=== PATIENT | female | born 1980 | race Caucasian/White ===

== ENCOUNTER 2016-05-03 14:58 | Emergency (ER) | payer OTHER ==
[2016-05-03 17:17] VITALS: BP 132/77
[2016-05-03] MEDS ORDERED: Azithromycin TAB* 250 MG PO ONE (17:51)
--- NOTE | 2016-05-03 17:53 | UC ---
Respiratory Complaint HPI - History of Current Complaint Chief Complaint: UCRespiratory Stated Complaint: SINUS PRESSURE,HEADACHE Time Seen by Provider: 05/03/16 17:42 Hx Obtained From: Patient Hx Last Menstrual Period: ABLASION 1 YEAR AGO AND TUBAL Onset/Duration: Gradual Onset - over past 4-5 days.sinus pain and pressure worsened over past day Timing: Constant Severity Initially: Mild Severity Currently: Moderate Aggravating Factors: Recumbent Position Alleviating Factors: Nothing - tried mucinex Associated Signs And Symptoms: Positive: Fever, Nasal Congestion, Sinus Discomfort - feeling fatigued - Risk Factors Cardiac Risk Factors: Negative - Allergies/Home Medications Allergies/Adverse Reactions: Allergies Allergy/AdvReac Type Severity Reaction Status Date / Time Penicillins Allergy Intermediate Hives Verified 09/14/14 06:57 Sulfa Antibiotics Allergy Intermediate itching Verified 09/14/14 06:57 all over Acetaminophen [From Tylenol] AdvReac GI Upset Verified 09/14/14 06:57 Home Medications: Home Medications Buprenorphine HCl-Naloxone HCl [Suboxone 4-1 mg] 05/03/16 [History] [id number] [Mucinex Fast-Max Day/Nigh] 05/03/16 [History] PMH/Surg Hx/FS Hx/Imm Hx Previously Healthy: Yes Endocrine History Of: Denies: Diabetes, Thyroid Disease Cardiovascular History Of: Denies: Cardiac Disorders, Hypertension, Pacemaker/ICD, Congestive Heart Failure Respiratory History Of: Reports: Bronchitis Denies: COPD, Asthma GI/ History Of: Denies: Ulcer, Renal Disease - Surgical History Surgical History: Yes Surgery Procedure, Year, and Place: carpal tunnel surgery. tubal ligation. c- sections x2 2005, 2007 - Family History Known Family History: Positive: None - Social History Occupation: Employed Full-time Lives: With Family Alcohol Use: None Substance Use Type: None - has used opiates. is currently on suboxone Smoking Status (MU): Current Every Day Smoker Type: Cigarettes Amount Used/How Often: 1/2 PPD 20+ YEARS Have You Smoked in the Last Year: Yes Cessation Counseling: Patient Advised to Stop - Immunization History Most Recent Influenza Vaccination: YES THIS SEASON Review of Systems Constitutional: Fever, Fatigue Eyes: Negative ENT: Nasal Discharge - yellow, Other - sinus pain and pressure, worse if bends forward Respiratory: Cough - occass. cough Cardiovascular: Negative Gastrointestinal: Negative Musculoskeletal: Negative Psychological: Negative All Other Systems Reviewed And Are Negative: Yes Physical Exam Triage Information Reviewed: Yes Appearance: Well-Appearing, No Pain Distress, Well-Nourished Vital Signs: Initial Vital Signs Temp 98.3 F 05/03/16 17:12 Pulse 61 05/03/16 17:12 Resp 16 05/03/16 17:12 BP 132/77 05/03/16 17:12 Pulse Ox 100 05/03/16 17:12 Vital Signs Reviewed: Yes Eye Exam: Normal Eyes: Positive: Conjunctiva Clear ENT: Positive: Pharyngeal erythema, Nasal congestion, Nasal drainage, TMs normal , Other: - bilat maxillary pain ith percussion Neck exam: Normal Neck: Positive: No Lymphadenopathy Respiratory Exam: Normal Respiratory: Positive: Lungs clear Cardiovascular Exam: Normal Neurological Exam: Normal Psychological Exam: Normal Skin Exam: Normal Skin: Negative: rashes UC Diagnostic Evaluation - Laboratory O2 Sat by Pulse Oximetry: 100 Respiratory Course/Dx - Differential Dx/Diagnosis Differential Diagnosis/HQI/PQRI: Bronchitis, Influenza, Sinusitis, Other - URI Provider Diagnoses: sinusitis Discharge - Discharge Plan Condition: Stable Disposition: HOME Prescriptions: Azithromycin TAB* [Zithromax TAB (Z-VALERIANO) 250 mg #6 tabs] 250 mg PO DAILY #4 tab Patient Education Materials: Sinusitis (ED) Referrals: Emiliano Short MD [Primary Care Provider] - 3 Days (If no better) Additional Instructions: Rest and increase fluids take zithromax as prescribed try sudafed for nasal decongestion Return here if your symptoms worsen
== END 2016-05-03 18:03 | disposition home or self-care (01) ==
LOC: UCEAST 14:58
DX: J01.90 Acute sinusitis, unspecified (principal); Z88.0 Allergy status to penicillin; Z88.6 Allergy status to analgesic agent
CPT/HCPCS: 99212; A9270-GY; G0463

== ENCOUNTER 2017-11-07 20:06 | Emergency (ER) | payer OTHER ==
[2017-11-07 20:29] VITALS: BP 154/89
[2017-11-07] MEDS ORDERED: Ciprofloxacin TAB* 500 MG PO ONE (21:11)
--- NOTE | 2017-11-07 21:12 | UC ---
Back Pain HPI - HPI Summary HPI Summary: started having low back pain 2 nights ago, also pink vaginal discharge (thinks its vaginal) Today back pain seemed higher, denies dysuria - History of Current Complaint Chief Complaint: UCBackPain Stated Complaint: BACK PAIN,BLEEDING Time Seen by Provider: 11/07/17 20:58 Hx Obtained From: Patient Hx Last Menstrual Period: ablation and tubal ?: No Onset/Duration: Gradual Onset Timing: Intermittent Severity Initially: Mild Severity Currently: Mild Pain Intensity: 3 Back Pain: Is Discrete @ - lower back Character: Throbbing, Stiffness Aggravating Factor(s): Movement, Bending Alleviating Factor(s): Rest Associated Signs And Symptoms: Positive: Negative - Risk Factors Cauda Equina Risk Factors: Negative - Allergies/Home Medications Allergies/Adverse Reactions: Allergies Allergy/AdvReac Type Severity Reaction Status Date / Time acetaminophen [From Tylenol] Allergy GI Upset Verified 11/07/17 20:30 Penicillins Allergy Hives Verified 11/07/17 20:30 Sulfa (Sulfonamide Allergy Itching Verified 11/07/17 20:30 Antibiotics) PMH/Surg Hx/FS Hx/Imm Hx Previously Healthy: Yes Psychological History: Anxiety - Surgical History Surgical History: Yes Surgery Procedure, Year, and Place: carpal tunnel surgery. tubal ligation. c- sections x2 2005, 2007. UTERINE ABLASION - Family History Known Family History: Positive: None Negative: Cardiac Disease, Hypertension - Social History Occupation: Employed Full-time Lives: With Family Alcohol Use: None Substance Use Type: None Smoking Status (MU): Former Smoker Type: Cigarettes Amount Used/How Often: 1/2 PPD 20+ YEARS Have You Smoked in the Last Year: Yes - Immunization History Most Recent Influenza Vaccination: YES THIS SEASON Review of Systems Constitutional: Negative Respiratory: Negative Cardiovascular: Negative Neurological: Negative Psychological: Negative All Other Systems Reviewed And Are Negative: Yes Physical Exam Triage Information Reviewed: Yes Appearance: Well-Appearing, No Pain Distress, Well-Nourished Vital Signs: Initial Vital Signs Temp 97.9 F 11/07/17 20:22 Pulse 62 11/07/17 20:22 Resp 16 11/07/17 20:22 BP 154/89 11/07/17 20:22 Pulse Ox 100 11/07/17 20:22 Vital Signs Reviewed: Yes Respiratory Exam: Normal Respiratory: Positive: Lungs clear Cardiovascular Exam: Normal Abdomen Description: Positive: Nontender, No Organomegaly, Soft Pelvic Exam: Positive: Other - deferred to REPAIR ORDER CLERK -pt is scheduling appoint Neurological Exam: Normal Psychological Exam: Normal Back Pain Course/Dx - Differential Dx/Diagnosis Differential Diagnosis/HQI/PQRI: Strain, Other - UTI, peg, low back strain Provider Diagnoses: low back strain. hematuria Discharge - Sign-Out/Discharge Documenting (check all that apply): Patient Departure - Discharge Plan Condition: Good Disposition: HOME Prescriptions: Ciprofloxacin TAB* [Cipro 250 MG Tab*] 250 mg PO BID #6 tab Patient Education Materials: Low Back Strain (ED), Hematuria (ED) Referrals: Emiliano Short MD [Primary Care Provider] - Additional Instructions: start Cipro as prescribed (do not take hydroxyzine with cipro) drink plenty of fluids See REPAIR ORDER CLERK as soon as possible - Billing Disposition and Condition Condition: GOOD Disposition: Home
== END 2017-11-07 21:25 | disposition home or self-care (01) ==
LOC: UCEAST 20:06
DX: S39.012A Strain of muscle, fascia and tendon of lower back, initial encounter (principal); X58.XXXA Exposure to other specified factors, initial encounter; Y92.9 Unspecified place or not applicable
CPT/HCPCS: 81003; 84702; 87086; 99212; A9270-GY; G0463

== ENCOUNTER 2018-01-01 10:52 | Day surgery (SDC) | payer OTHER ==
[~2018-01-01 10:52] MED LIST: Buffered Lidocaine 0.9% SYRIN* 5 ML/SYR SYRINGE INTRADERM ONE
[2018-01-01] MEDS ORDERED: Lidocaine 1% INJ* 10 MG/ML 30 ML SDV ONE (12:02)
[2018-01-01] MEDS ORDERED: Midazolam* 1 MG/ML 2 ML VIAL (2 MG) ONE (12:23)
[2018-01-01] MEDS ORDERED: Naloxone* 0.4 MG/ML 1 ML VIAL IV PRN (12:46)
[2018-01-01 13:14] VITALS: BP 112/60
--- NOTE | 2018-01-02 02:59 | OP ---
DATE OF OPERATION: 01/01/18 [facility] DATE OF : 80 SURGEON: Maria Luisa Muhammad MD PHARMACEUTICAL ANALYST: MONIQUE Nichols ANESTHESIA: Local MAC. PRE-OP DIAGNOSES: Left carpal tunnel syndrome and left wrist ulnar nerve compression. POST-OP DIAGNOSES: Left carpal tunnel syndrome and left wrist ulnar nerve compression. OPERATIVE PROCEDURE: Ulnar and median nerve decompression at the left wrist. INDICATIONS FOR PROCEDURE: Kaleigh is a 37-year-old female who has numbness and tingling in all of the fingers of her left hand and exam consistent with an ulnar nerve compression at the wrist and a median nerve compression at the wrist. She presents for ulnar and median nerve decompression at the left wrist. ESTIMATED BLOOD LOSS: Zero. TOURNIQUET TIME: About 20 minutes. DESCRIPTION OF PROCEDURE: The patient was brought to the operating room, was given a sedation anesthetic and a local infiltration of 10 cc of 1% plain lidocaine in the palm of her left hand and on the ulnar aspect of the distal wrist. The skin of her left upper extremity was prepped and draped in the usual sterile fashion and then the hand and forearm were exsanguinated and the tourniquet elevated to 250 mmHg. A longitudinal incision was made in the center of the palm in line with the ring finger. We dissected through the subcutaneous tissue down to the transverse carpal ligament. The ligament was divided sharply with a knife and then more proximally with the scissors. The nerve was dissected free from the surrounding tissue and there was an area of moderate compression at the mid portion of the ligament. The wound was then extended proximally across the wrist in zig-zag fashion and we dissected bluntly down to the ulnar nerve and artery. There were abundant fascial bands just proximal to the distal wrist crease, which were compressing the nerve and these were all completely released. The nerve was then released through Guyon' s canal all the way into the center of the palm. The wound was irrigated and the skin edges were reapproximated with 4-0 nylon suture. The wound was dressed with Xeroform, 4x4, Webril, and an Robbie wrap. The patient tolerated the procedure well and was brought to the recovery room in good condition. [id number]/[facility] #: [id number] [facility]
== END 2018-01-01 13:46 | disposition home or self-care (01) ==
LOC: OREAST 10:52
PROVIDERS: ATTEND Orthopaedic Surgery
DX: G56.02 Carpal tunnel syndrome, left upper limb (principal); G56.22 Lesion of ulnar nerve, left upper limb; J45.909 Unspecified asthma, uncomplicated; Z87.891 Personal history of nicotine dependence; Z68.36 Body mass index [BMI] 36.0-36.9, adult
CPT/HCPCS: J2250

== ENCOUNTER 2018-06-15 10:14 | Day surgery (SDC) | payer OTHER ==
--- NOTE | 2018-06-04 07:02 | HP ---
HISTORY AND PHYSICAL: DATE OF ADMISSION/SURGERY: 06/15/18 DATE OF OFFICE VISIT: 06/03/18 SURGEON: Maria Luisa Muhammad MD * (DICTATED BY MONIQUE HERNANDEZ) PROCEDURE: Left trigger thumb release. CHIEF COMPLAINT: Left thumb pain. HISTORY OF PRESENT ILLNESS: Ms. Gore is a 37-year-old female with complaints of left thumb triggering. She has elected to proceed with surgery. PAST MEDICAL HISTORY: Denies. PAST SURGICAL HISTORY: Bilateral carpal tunnel release, left ulnar nerve decompression, and 2 C-sections. CURRENT MEDICATIONS: Suboxone 8 mg 2-2 a day. ALLERGIES: PENICILLIN and SULFA. FAMILY HISTORY: Denies. SOCIAL HISTORY: She is a 37-year-old female. She lives with her and children. She does not smoke, use drugs or alcohol. REVIEW OF SYSTEMS: A complete 14-point review of systems was reviewed with the patient. It was all negative or noncontributory. She denies history of DVT, PE , hepatitis, HIV, or anesthesia problems. PHYSICAL EXAMINATION GENERAL: She is well developed, well nourished, in no acute distress. She is alert and oriented x3. Pleasant mood and appropriate affect. VITAL SIGNS: The patient is 65 inches tall, weighs 220 pounds. HEENT: Normocephalic, atraumatic. NECK: Supple. No palpable lymph nodes. PULMONARY: The lungs are clear to auscultation bilaterally. CARDIO: Regular rate and rhythm. Strong S1, S2. ABDOMEN: Soft, nontender, nondistended. NEUROLOGICAL: She is alert and oriented x3. MUSCULOSKELETAL: Left upper extremity: The skin is intact. There are no open wounds or abrasions. She has intact sensation. There is triggering of the left thumb and some tenderness to palpation over the A1 luba. Full range of motion of the left wrist. She has 2+ palpable pulse. ASSESSMENT AND PLAN: Ms. Gore is a 37-year-old female with a left trigger thumb. She has elected to proceed with a left trigger thumb release. The surgery is scheduled for 06/15/[address] Muhammad discussed the risks and benefits of the surgery at today's visit and all of her questions were answered. She will follow up with Dr. Muhammad 7 to 10 days after the surgery. MONIQUE HERNANDEZ [id number]/[facility] #: [id number] SONIA
[~2018-06-15 10:14] MED LIST changes: -Buffered Lidocaine 0.9% SYRIN* 5 ML/SYR SYRINGE INTRADERM ONE; +Buffered Lidocaine 1% SYRIN* 1 ML/SYRINGE INTRADERM ONE; +Dexamethasone IV* 4 MG/ML 1 ML (4 MG) IV SLOW PU ONE; +Famotidine IV* 10 MG/ML 2 ML (20 mg) IV ONE; +Ketorolac INJ* 30 MG/ML 1 ML VIAL IV PRN; +Lactated Ringers 1000 ML Bag* 1,000 ML IV SCH; +Naloxone* 0.4 MG/ML 1 ML VIAL IV PRN; +Ondansetron INJ* 2 MG/ML VIAL IV PRN; +fentaNYL* 50 MCG/ML 2 ML VIAL (100 MCG VIAL) IV PRN; +oxyCODONE TAB* 5 MG TAB PO PRN
[2018-06-15] MEDS ORDERED: Lidocaine 1% INJ* 10 MG/ML 30 ML SDV ONE (10:23)
[2018-06-15] MEDS ORDERED: Famotidine IV* 10 MG/ML 2 ML (20 mg) ONE (10:30)
[2018-06-15] MEDS ORDERED: Dexamethasone IV* 4 MG/ML 1 ML (4 MG) ONE (10:30)
[2018-06-15] MEDS ORDERED: fentaNYL* 50 MCG/ML 2 ML VIAL (100 MCG VIAL) ONE (12:20)
[2018-06-15] MEDS ORDERED: Propofol* 10 MG/ML 20 ML BTL ONE (12:21)
[2018-06-15] MEDS ORDERED: Midazolam* 1 MG/ML 2 ML VIAL (2 MG) ONE (12:21)
[2018-06-15] MEDS ORDERED: Lidocaine 2% PF * 5 ML VIAL ONE (12:21)
[2018-06-15 13:43] VITALS: BP 118/70
--- NOTE | 2018-06-15 15:53 | OP ---
CC: Maria Luisa Muhammad MD* OPERATIVE NOTE: DATE OF OPERATION: 06/15/18 - [facility] DATE OF : 80 SURGEON: Maria Luisa Muhammad MD [employer]IA [employer] OPERATOR: MONIQUE Levine ANESTHESIOLOGIST: Bartolome Bender MD ANESTHESIA: Local MAC PRE-OP DIAGNOSIS: Left trigger thumb. POST-OP DIAGNOSIS: Left trigger thumb. OPERATIVE PROCEDURE: Left trigger thumb release. ESTIMATED BLOOD LOSS: Zero. TOURNIQUET TIME: Approximately 10 minutes. INDICATIONS FOR PROCEDURE: Kaleigh is a 37-year-old female who has locking and triggering of her left thumb. She presents for trigger thumb release. DESCRIPTION OF PROCEDURE: Kaleigh was brought to the operating room, given a sedation anesthetic and a local infiltration of 10 cc of 1% plain lidocaine overlying the left thumb A1 luba. Skin of her left hand and forearm was prepped and draped in the usual sterile fashion. The hand and forearm were exsanguinated and the tourniquet elevated to 250 mmHg. A transverse incision was made, centered over the A1 luba. We dissected through the subcutaneous tissue down to the A1 luba. The digital neurovascular bundles were retracted by the service assistant, Sara Benoit. The luba was released longitudinally completely releasing the flexor tendon which was in good condition. There was no tenosynovitis. The wound was irrigated and skin edges reapproximated with 4-0 nylon suture. The wound was dressed with Xeroform, 4x4 , Webril, and an Robbie wrap. The patient tolerated the procedure well, was brought to the recovery room in good condition. [id number]/[facility] #: [id number] [facility]
== END 2018-06-15 13:42 | disposition home or self-care (01) ==
LOC: OREAST 10:14
PROVIDERS: ATTEND Orthopaedic Surgery
DX: M65.312 Trigger thumb, left thumb (principal); J45.909 Unspecified asthma, uncomplicated; F41.9 Anxiety disorder, unspecified; G89.29 Other chronic pain
CPT/HCPCS: J1100; J2250; J2704; J3010

== ENCOUNTER 2019-06-13 13:38 | Emergency (ER) | payer OTHER ==
--- OUTSIDE RECORDS SUMMARY | 2019-06-13 13:43 | XMS REPORT | Continuity of Care Document ---
:1980 External Reference #:[id number] Author Name Emiliano Short M.D. (transmitted by agent of provider Arianna Johnson) Address [address] [place] [address] [address] [place] [address] Care Team Providers Name Role Phone Conor Macias MD - Allergy & Care Team Information Tableau Report Developer Immunology [facility] - Sports Care Team Information Tableau Report Developer [phone] Medicine Maria Luisa Muhammad MD - Orthopaedic Care Team Information Tableau Report Developer Surgery Jesus Copeland MD - Air Carrier Maintenance Inspector Care Team Information Tableau Report Developer [phone] HCP given Care Team Information Tableau Report Developer Unavailable Problems Active Problems Provider Date Recurrent subluxation of the patella Emiliano Short M.D. Onset: 02/25/2016 Anxiety state Emiliano Short M.D. Onset: 02/25/2016 Opioid dependence Emiliano Short M.D. Onset: 02/25/2016 Mild intermittent asthma Emiliano Short M.D. Onset: 06/27/2016 Social History Type Date Description Comments Sex Unknown Tobacco Use Start: Unknown End: Former Cigarette Smoker still vaping Unknown (nicotine); was smoking 1/2ppd until she quit smoking 05/2017 using vape pen Smoking Status Reviewed: 01/19/19 Former Cigarette Smoker still vaping (nicotine); was smoking 1/2ppd until she quit smoking 05/2017 using vape pen ETOH Use 09/17/2015 Rarely consumes alcohol Exercise Exercises regularly Type/Frequency Allergies, Adverse Reactions, Alerts Active Allergies Reaction Severity Comments Date Sulfa itchy 09/17/2015 Penicillins hives as a child 09/17/2015 Medications Active Medications SIG Qnty Indications Ordering Date Provider OTC Keto Diet Tabs Unknown 11/14/2018 Polyethylene Glycol use 1 cap full 500gm K59.00 Emiliano Short, 2018 3350 in 8 oz of any M.D. Powder fluid every day; adjust dose as directed w/ goal of 1-2 soft bms/day Buprenorphine 1.5 films in the 90units M25.569 Emiliano Short, 08/04/2018 Hydrochloride/Naloxone morning, 1 in M.D. Hydrochloride the afternoon, 8-2mg Film 1/2 in the evening; dissolve them in your mouth; prescriber# [id number] F11.20 Ibuprofen 200 prn Unknown 03/30/2017 200mg Tablets Ventolin HFA 2 puffs every 4 J45.20 Margaux, 06/26/2016 108(90Base) hours as needed MD Diana mcg/Act Aerosol for cough, wheezing, sob Hydroxyzine HCL Take One Tablet By 60tabs F41.9 Emiliano Short, 2015 50mg Mouth Every 6 M.D. Tablets Hours as Needed For Anxiety/Panic Medications Administered in Office Medication SIG Qnty Indications Ordering Provider Date SC/Im Injections Jacky Blanton D.O. 12/22/2017 Injection Immunizations CPT Code Status Date Vaccine Lot # [id number] Given 12/21/2018 Influenza Virus Vaccine, Quadrivalent, Split, [id number] Preservative Free 48051 Given 11/13/2017 Influenza Virus Vaccine, Quadrivalent, Split, [id number] Preservative Free 02752 Given 10/27/2016 Influenza Virus Vaccine, Quadrivalent, Split, [id number] Preservative Free 15259 Given 11/23/2015 Influenza Virus Vaccine, Quadrivalent, Split, [id number] Preservative Free 41213 Given 09/17/2015 Adacel or Boostrix, TDaP [id number] Vital Signs Date Vital Result Comment 05/25/2019 5:24pm BP Systolic 124 mmHg BP Diastolic 76 mmHg Weight 189.00 lb 04/22/2019 4:56pm BP Systolic 116 mmHg BP Diastolic 70 mmHg Height 64.75 inches 5'4.75" Weight 192.50 lb BMI (Body Mass Index) 32.3 kg/m2 Results Test Acquired Date Facility Test Result H/L Range Note Urine Drug Screen Inhouse 12/21/2018 In House Ua Cocaine - Ua Opiates - Ua Amphetamines - Urine Methanphetamines - Urine Benzodiazepines QN [place] - Urine Oxycodone QL - Procedures Description No Information Available Medical Devices Description No Information Available Encounters Type Date Location Provider Dx Diagnosis Office Visit 05/25/2019 Main Office Emiliano Short F11.20 Opioid dependence, 4:45p Reji uncomplicated R87.810 Cervical high risk HPV Dna test positive Office Visit 04/22/2019 4:15p Main Office Deja F11.20 Opioid dependence, Reji Cummings uncomplicated F41.9 Anxiety disorder, unspecified K59.00 Constipation, unspecified Z68.32 Body mass index (BMI) 32.0-32.9, adult Office Visit 03/18/2019 4:00p Main Office Deja F11.20 Opioid dependence, Reji Cummings uncomplicated F41.9 Anxiety disorder, unspecified Office Visit 02/16/2019 11:30a Main Office Deja F11.20 Opioid dependence, Reji Cummings uncomplicated F41.9 Anxiety disorder, unspecified Z68.33 Body mass index (BMI) 33.0-33.9, adult Office Visit 01/19/2019 10:30a Main Office Deja F11.20 Opioid dependence, Reji Cummings uncomplicated K59.00 Constipation, unspecified F17.200 Nicotine dependence, unspecified, uncomplicated Office Visit 12/21/2018 9:30a Main Office Deja F11.20 Opioid dependence, Reji Cummings uncomplicated F41.9 Anxiety disorder, unspecified K59.00 Constipation, unspecified Z23 Encounter for immunization Z41.8 Encntr for oth proc for purpose [facility] Assessments Date Code Description Provider 05/25/2019 [id number] Opioid dependence, uncomplicated Emiliano Short M.D. 05/25/2019 R87.810 Cervical high risk human papillomavirus Emiliano Short M.D. (HPV) Dna test positive 04/22/2019 F11.20 Opioid dependence, uncomplicated Emiliano Short M.D. 04/22/2019 F41.9 Anxiety disorder, unspecified Emiliano Short M.D. 04/22/2019 K59.00 Constipation, unspecified Silcoff, Emiliano, M.D. 04/22/2019 Z68.32 Body mass index (BMI) 32.0-32.9, adult Emiliano Short M.D. 03/18/2019 F11.20 Opioid dependence, uncomplicated Emiliano Short M.D. 03/18/2019 F41.9 Anxiety disorder, unspecified Emiliano Short M.D. 02/16/2019 F11.20 Opioid dependence, uncomplicated Emiliano Short M.D. 02/16/2019 F41.9 Anxiety disorder, unspecified Emiliano Short M.D. 02/16/2019 Z68.33 Body mass index (BMI) 33.0-33.9, adult Emiliano Short M.D. 01/19/2019 F11.20 Opioid dependence, uncomplicated Emiliano Short M.D. 01/19/2019 K59.00 Constipation, unspecified Emiliano Short M.D. 01/19/2019 F17.200 Nicotine dependence, unspecified, Emiliano Short M.D. uncomplicated 12/21/2018 F11.20 Opioid dependence, uncomplicated Emiliano Short M.D. 12/21/2018 F41.9 Anxiety disorder, pakoified Emiliano Short M.D. 12/21/2018 K59.00 Constipation, unspecified Emiliano Short M.D. 12/21/2018 Z23 Encounter for immunization Emiliano Short M.D. 12/21/2018 Z41.8 Encounter for other procedures for purposes Emiliano Short M.D. other than remedying health state Plan of Treatment Future Appointment(s):06/20/2019 10:15 am - Emiliano Short M.D. at Main [facility]/25/2019 - Emiliano Short M.D.F11.20 Opioid dependence, uncomplicatedFollow up:RTO 1 [id number] Cervical high risk human papillomavirus (HPV) Dna test positiveComments:Advised pt re being past due for another PAP. She stated she would call her gyne provider about thistomorrow.Follow up:Don't forget...You are overdue to get another PAP test. Please schedule an appointment to see your gyne provider for this. Functional Status Description No Information Available Mental Status Description No Information Available Referrals Description No Information Available
--- OUTSIDE RECORDS SUMMARY | 2019-06-13 13:43 | XMS REPORT | Continuity of Care Document ---
:1980 External Reference #:[id number] Author Name Emiliano Short M.D. Address [address] [facility] [address] [place] [address] Care Team Providers Name Role Phone Conor Macias MD - Allergy & Care Team Information Certified Pathology Assistant Immunology [facility] - Sports Care Team Information Certified Pathology Assistant [phone] Medicine Maria Luisa Muhammad MD - Orthopaedic Care Team Information Certified Pathology Assistant Surgery Jesus Copeland MD - Diabetologist Care Team Information Certified Pathology Assistant [phone] HCP given Care Team Information Certified Pathology Assistant Unavailable Problems Active Problems Provider Date Recurrent [...] Glycol use 1 cap full 500gm K59.00 Deja Emiliano, 2018 3350 in 8 oz of any M.D. Powder fluid every day; adjust dose as directed w/ goal of 1-2 soft bms/day Buprenorphine 1.5 films in the 90units M25.569 Deja Emiliano, 08/04/2018 Hydrochloride/Naloxone morning, 1 in M.D. Hydrochloride the afternoon, 8-2mg Film 1/2 in the evening; dissolve them in your mouth; prescriber# [id number]; rx due 04/24/19 F11.20 Ibuprofen 200 prn Unknown 03/30/2017 200mg Tablets Ventolin HFA 2 puffs every 4 J45.20 Virajanoro, 06/26/2016 108(90Base) hours as needed MD Diana mcg/Act Aerosol for cough, wheezing, sob Hydroxyzine HCL Take One Tablet By 60tabs F41.9 Emiliano Short, 2015 50mg Mouth Every 6 M.D. Tablets Hours as Needed For Anxiety/Panic Medications Administered in Office Medication SIG Qnty Indications Ordering Provider Date SC/Im Injections Jacky Blanton D.O. 12/22/2017 Injection Immunizations CPT Code Status Date Vaccine Lot # [id number] Given 12/21/2018 Influenza Virus Vaccine, Quadrivalent, Split, [id number] Preservative Free [id number] Given 11/13/2017 Influenza Virus Vaccine, Quadrivalent, Split, [id number] Preservative Free 16327 Given 10/27/2016 Influenza Virus Vaccine, Quadrivalent, Split, [id number] Preservative Free 41437 Given 11/23/2015 Influenza Virus Vaccine, Quadrivalent, Split, [id number] Preservative Free 89115 Given 09/17/2015 Adacel or Boostrix, TDaP [id number] Vital Signs Date Vital Result Comment 04/22/2019 4:56pm BP Systolic 116 mmHg BP Diastolic 70 mmHg Height 64.75 inches 5'4.75" Weight 192.50 lb BMI (Body Mass Index) 32.3 kg/m2 03/18/2019 4:10pm BP Systolic 134 mmHg BP Diastolic 84 mmHg Weight 198.50 lb Results Test Acquired Date Facility Test Result H/L Range Note Urine Drug Screen Inhouse 12/21/2018 In House [facility] Cocaine - [facility] Opiates - [facility] Amphetamines - Urine Methanphetamines - Urine Benzodiazepines QN [place] - Urine Oxycodone QL - Procedures Description No Information Available Medical Devices Description No Information Available Encounters Type Date Location Provider Dx Diagnosis Office Visit 03/18/2019 Main Office Emiliano Short F11.20 Opioid dependence, 4:00p Reji uncomplicated F41.9 Anxiety disorder, unspecified Office Visit [...] Z41.8 Encntr for oth proc for purpose oth [facility] Office Visit 11/15/2018 11:15a Main Office Deja F11.20 Opioid dependence, Reji Cummings uncomplicated F41.9 Anxiety disorder, unspecified Assessments Date Code Description Provider 04/22/2019 F11.20 Opioid dependence, uncomplicated Emiliano Short M.D. 04/22/2019 F41.9 Anxiety disorder, unspecified Emiliano Short M.D. 04/22/2019 K59.00 Constipation, unspecified Emiliano Short M.D. 04/22/2019 Z68.32 Body mass index (BMI) 32.0-32.9, adult Emiliano Short M.D. 03/18/2019 F11.20 Opioid dependence, uncomplicated Emiliano Short M.D. 03/18/2019 F41.9 Anxiety disorder, unspecified Emiliano Short M.D. 02/16/2019 F11.20 Opioid dependence, uncomplicated Emiliano Short M.D. 02/16/2019 F41.9 Anxiety disorder, unspecified Silcoff, Emiliano, M.D. 02/16/2019 Z68.33 Body mass index (BMI) 33.0-33.9, adult Emiliano Short M.D. 01/19/2019 F11.20 Opioid dependence, uncomplicated Emiliano Short M.D. 01/19/2019 K59.00 Constipation, unspecified Emiliano Short M.D. 01/19/2019 F17.200 Nicotine dependence, unspecified, Emiliano Short M.D. uncomplicated 12/21/2018 F11.20 Opioid dependence, uncomplicated Emiliano Short M.D. 12/21/2018 F41.9 Anxiety disorder, unspecified Emiliano Short M.D. 12/21/2018 K59.00 Constipation, unspecified Emiliano Short M.D. 12/21/2018 Z23 Encounter for immunization Emiliano Short M.D. 12/21/2018 Z41.8 Encounter for other procedures for purposes Emiliano Short M.D. other than remedying health state 11/15/2018 F11.20 Opioid dependence, uncomplicated Emiliano Short M.D. 11/15/2018 F41.9 Anxiety disorder, unspecified Emiliano Short M.D. Plan of Treatment Future Appointment(s):05/20/2019 4:15 pm - Emiliano Short M.D. at [facility]/22/2019 - Emiliano Short M.D.F11.20 Opioid dependence, uncomplicatedFollow up:RTO 1 xoprgP86.9 Anxiety disorder, xskrleiadkwS27.00 Constipation, dxqobaukzpbW72.32 Body mass index (BMI) 32.0-32.9, adult Functional Status Description No Information Available Mental Status Description No Information Available Referrals Description No Information Available
--- NOTE | 2019-06-13 14:13 | UC ---
Telehealth HPI HPI Summary: 38-year-old female presents with 4 day history of sore throat and swollen glands. Over the last 1-2 days has developed some mild nasal congestion, runny nose, and occasional dry cough. has been sick for the past week with upper respiratory symptoms and her daughter was diagnosed 2 weeks ago with pneumonia. No recent travel or known exposure to persons isolated for or diagnosed with COVID-19. Denies fever, chills, ear pain, dysphagia, chest pain , shortness of breath, abdominal pain, nausea, vomiting, or diarrhea. Telehealth PMH Previously Healthy: Yes Endocrine/Hematology History: Reports: Hx Thyroid Disease - when sick Denies: Hx Diabetes Cardiovascular History: Denies: Hx Congestive Heart Failure, Hx Hypertension, Hx Pacemaker/ICD, Other Cardiovascular Problems/Disorders Respiratory History: Reports: Hx Asthma - only when she has a cold Denies: Hx Chronic Obstructive Pulmonary Disease (COPD), Other Respiratory Problems/Disorders GI History: Denies: Hx Ulcer, Other GI Disorders History: Denies: Hx Renal Disease Musculoskeletal History: Reports: Hx Tendonitis - zelda hands Denies: Hx Scoliosis, Other Musculoskeletal History Sensory History: Denies: Hx Contacts or Glasses, Hx Hearing Aid Opthamlomology History: Denies: Hx Contacts or Glasses Neurological History: Denies: Hx Headaches, Other Neuro Impairments/Disorders Psychiatric History: Reports: Hx Anxiety - mild Denies: Hx Panic Disorder - Cancer History Hx Chemotherapy: No - Surgical History Surgery Procedure, Year, and Place: carpal tunnel surgery right, 2008, [facility]. tubal ligation. c-sections x2 2006, 2007. UTERINE ABLASION , 2014. carpal tunnel surgery left hand 2018 Hx Anesthesia Reactions: No - Family History Known Family History: Positive: None Negative: Cardiac Disease, Hypertension - Social History Alcohol Use: None Substance Use Type: Reports: None Smoking Status (MU): Former Smoker Type: Cigarettes Amount Used/How Often: 1/2 PPD 20+ YEARS Have You Smoked in the Last Year: Yes Telehealth ROS All Other Systems Reviewed And Are Negative: Yes Negative: Fever, Chills Negative: Drainage, Erythema Positive: Sore Throat, Nasal Discharge. Negative: Ear Ache Negative: Chest Pain Positive: Cough. Negative: Shortness Of Breath Negative: Abdominal Pain, Vomiting, Diarrhea, Nausea Genitourinary: Negative Musculoskeletal: Negative Skin: Negative Neurological/Mental Status: Negative UC Telehealth PE Telehealth Physical Exam: Physical exam limited due to telemedicine out of concern for COVID-19. Patient did not appear to be in any acute respiratory distress and was able to speak in full sentences. Directly observed by Shelia Conner RN who reports no distress. [facility] Course/Dx Assessment/Plan: 38-year-old female presents with 4 day history of sore throat and swollen glands. Over the last 1-2 days has developed some mild nasal congestion, runny nose, and occasional dry cough. has been sick for the past week with upper respiratory symptoms and her daughter was diagnosed 2 weeks ago with pneumonia. No recent travel or known exposure to persons isolated for or diagnosed with COVID-19. Denies fever, chills, ear pain, dysphagia, chest pain , shortness of breath, abdominal pain, nausea, vomiting, or diarrhea. Patient history and assessment was conducted via telemedicine out of concern for COVID- 19 therefore physical examination was limited. After contacting a thorough history discussed with the patient that I have a low suspicion for COVID-19 infection. Patient was tested for rapid strep and rapid flu which were negative. These results were reviewed with the patient and I recommended symptomatic treatment for a viral upper respiratory infection at this time. She is to follow-up with her primary care provider in 5-7 days if symptoms are not improving. Anticipatory guidance and warning symptoms were reviewed with the patient. Verbalizes understanding and agrees with plan of care. Provider Diagnoses: Viral upper respiratory infection [facility] Disposition Provider Recommendation for Treatment: Urgent Care Telehealth Visit: Patient Consented Verbally to Telehealth Visit Telehealth Patient Statement: The patient should understand that they are communicating with their provider via a secure communication platform and that all the same privacy and confidentiality rules apply. They will also be responsible for copayments or coinsurances that apply to any Telehealth visit. Patient Identifiers: 2 Patient Identifiers Verified for Telehealth Visit Telehealth Visit Start Time: 14:15 Telehealth Visit End Time: 15:30 Telehealth Provider Attestation: The above services were appropriate to provide in a Telehealth setting.
[2019-06-13 15:25] LABS: Influenza A Molecular Negative (Negative); Influenza B Molecular Negative (Negative)
== END 2019-06-13 15:47 | disposition home or self-care (01) ==
LOC: UCEAST 13:38
DX: J06.9 Acute upper respiratory infection, unspecified (principal); Z87.891 Personal history of nicotine dependence
CPT/HCPCS: 87651; 99202; G0463; Q3014